=== PATIENT | male | born 1950 | race Two or more races ===

== ENCOUNTER 2018-03-05 20:15 | Observation (INO) | payer MEDICAID, OTHER ==
[~2018-03-05] VITALS: Ht 160 cm; Wt 79.8 kg
[~2018-03-05 20:15] MED LIST: ALLO100T PO; AMLO5TAB13 PO; ASPI-498 PO; ATO40T PO; CLOP75TA41 PO; FAMO10TA48 PO; TAMS0.4C36 PO; [UNRECOGNIZED DRUG - CODE] PO
[2018-03-05 21:49] LABS: Basophils # (auto) 0 uL; Basophils % (auto) 0.2 % (0.0-2.0); Eosinophils # (auto) 0 uL; Hemoglobin 12.9 g/dL (13.5-17.5); Lymphocytes # (auto) 0.5 uL; Lymphocytes % (auto) 6.4 % (10.0-50.0); Monocytes # (auto) 0.1 uL; Nucleated Red Blood Cells % 0.1 %
[2018-03-05 21:51] LABS: Hematocrit 39.8 % (41.0-53.0); Mean Corpuscular Hemoglobin 24.8 pg (28.0-32.0); Mean Corpuscular Hgb Conc. 32.5 g/dL (32.0-36.0); Mean Corpuscular Volume 76.4 fL (80.0-100.0); Monocytes % (auto) 1.1 % (0.0-12.0); Neutrophils # (auto) 6.9 uL; Neutrophils % (auto) 92.3 % (37.0-80.0); Platelet Count (auto) 155 10^3/uL (140-450); Red Blood Cells 5.22 10^6/uL (4.5-5.90); Red Cell Distribution Width 18.3 % (11.8-14.3); White Blood Cell 7.5 10^3/uL (4.4-10.8)
[2018-03-05 22:06] LABS: Albumin 3.7 g/dL (3.4-5.0); BUN/Creatinine Ratio 13.8; Calcium 8.8 mg/dL (8.5-10.1)
[2018-03-05 22:08] LABS: INR 1.04 (0.9-1.15); Partial Thromboplastin Time 26.6 sec (23.78-33.04); Prothrombin Time 11.1 sec (9.27-12.13)
[2018-03-05 22:09] LABS: Bilirubin, Total 0.5 mg/dL (0.2-1.0); Total Protein 7.4 g/dL (6.4-8.2)
[2018-03-05 23:27] VITALS: BP 130/70
== END 2018-03-05 23:32 | disposition home or self-care (01) | DRG 556 ==
LOC: EDBD 20:15 → ER 20:18 → OVERFLOW 20:19 → ER 23:32
PROVIDERS: ADMIT Family Medicine; ATTEND Family Medicine
DX: M25.561 Pain in right knee (principal); I10 Essential (primary) hypertension; D64.9 Anemia, unspecified; I25.10 Atherosclerotic heart disease of native coronary artery without angina pectoris; I25.2 Old myocardial infarction; Z79.899 Other long term (current) drug therapy
CPT/HCPCS: 36415; 73562; 80053; 83735; 85025; 85610; 85730; 99285; G0378

== ENCOUNTER 2023-11-07 14:01 | Emergency (ER) | payer OTHER ==
[~2023-11-07] VITALS: Ht 170.2 cm; Wt 75.0 kg
[~2023-11-07 14:01] MED LIST changes: +AMLO1TAB22 PO; -AMLO5TAB13 PO; -ATO40T PO; +ATOR-507 PO; -CLOP75TA41 PO; +CLOP75TA70 PO; +FAMO10TA41 PO; -FAMO10TA48 PO
[2023-11-07 14:28] VITALS: O2SAT 95
[2023-11-07 14:35] LABS: Basophils # (auto) 0.1 10 ^3/uL (0-0.2); Basophils % (auto) 0.7 % (0.0-2.0); Eosinophils # (auto) 0.2 10 ^3/uL (0-0.8); Eosinophils % (auto) 3.1 % (0.0-7.0); Hematocrit 39.2 % (41.0-53.0); Hemoglobin 12.8 g/dL (13.5-17.5); Lymphocytes # (auto) 2.3 10 ^3/uL (0.4-5.4); Mean Corpuscular Hemoglobin 27.6 pg (28.0-32.0); Mean Corpuscular Hgb Conc. 32.7 g/dL (32.0-36.0); Mean Corpuscular Volume 84.3 fL (80.0-100.0); Monocytes # (auto) 0.7 10 ^3/uL (0-1.3); Monocytes % (auto) 9.3 % (0.0-12.0); Neutrophils # (auto) 4.6 10 ^3/uL (1.6-8.6); Neutrophils % (auto) 57.9 % (37.0-80.0); Nucleated Red Blood Cells % 0.1 %; Red Blood Cells 4.65 10^6/uL (4.5-5.90); Red Cell Distribution Width 16.4 % (11.8-14.3)
[2023-11-07 14:54] LABS: Alanine Aminotransferase 35 U/L (7-40); Albumin 3.8 g/dL (3.2-4.8); Alkaline Phosphatase 134 U/L (46-116); Anion Gap 8 (5-15); Aspartate Aminotransferase 22 U/L (13-40); BUN/Creatinine Ratio 12.4 (10.0-20.0); Blood Urea Nitrogen 13 mg/dL (9-23); Calcium 9.9 mg/dL (8.5-10.1); Carbon Dioxide 24 mmol/L (20-30); Chloride 106 mmol/L (98-107); Glucose 103 mg/dL (74-106); Magnesium 1.3 mg/dL (1.6-2.6); Potassium 3.7 mmol/L (3.5-5.1); Sodium 138 mmol/L (136-145)
[2023-11-07 14:55] LABS: Bilirubin, Total 0.5 mg/dL (0.2-1.0); Total Protein 6.2 g/dL (5.7-8.2)
[2023-11-07 15:08] LABS: Urine Bacteria None Seen /hpf (None Seen)
[2023-11-07 15:21] LABS: Urine Blood Negative /uL (Negative); Urine Clarity Clear (Clear); Urine Color Light-Yellow (Yellow); Urine Protein, UAD Negative (Negative); Urine Urobilinogen Normal (Negative); Urine WBC <1 /hpf (0 - 3); Urine pH 6.5 (5.0-9.0)
[2023-11-07] MEDS: MAGNESIUM SULFATE 1GM/100ML 100 ML IV SCH (16:24)
[2023-11-07] MEDS: METOCLOPRAMIDE HCL 5MG/ml INJ 2ml VIAL IV ONE (17:58)
[2023-11-07] MEDS: MECLIZINE HCL 25 MG TAB PO ONE (17:58)
[2023-11-07] MEDS: PANTOPRAZOLE 40 MG TAB PO ONE (17:58)
[2023-11-07 19:29] VITALS: BP 111/60; PULSE 66; RESP 21; TEMP 97.7; O2SAT 95
== END 2023-11-07 20:05 ==
LOC: ER 14:01 → EDUNIT# 14:01 → EDBD 14:01 → ER 20:05
DX: H81.10 Benign paroxysmal vertigo, unspecified ear (principal); R53.1 Weakness; R07.89 Other chest pain; D69.6 Thrombocytopenia, unspecified; R79.89 Other specified abnormal findings of blood chemistry; E83.42 Hypomagnesemia; I25.2 Old myocardial infarction; K21.9 Gastro-esophageal reflux disease without esophagitis; K44.9 Diaphragmatic hernia without obstruction or gangrene; Z98.61 Coronary angioplasty status
CPT/HCPCS: 36415; 70450; 71045; 80053; 81001; 83735; 84484; 85025; 93005; 96365; 96366; 96375; 99285; J2765; J3475; J8597